=== PATIENT | female | born 1960 | race African-American/Black ===

== ENCOUNTER → 2016-06-05 | Outpatient (CLI) | payer BC ==
[~2016-06-05] MED LIST: ACYC400T PO; ASPI81TA2 PO; ATEN1TAB3 PO; CHOL200014 PO; CHOL4PAC5 PO; CLON0.1T13 PO; CYAN100085 PO; GABA-338 PO; LACT1CAP73 PO; LEVO100T12 PO; LIOT5TAB4 PO; MILN50TA PO; OMEP20CA10 PO; [UNRECOGNIZED DRUG - CODE] PO
[2016-06-06 01:18] LABS: FREE T4 (FREE THYROXINE)-BATCH 0.95 NG/DL (0.78-2.19)
[2016-06-06 02:19] LABS: T3 FREE - BATCH 5.34 PG/ML (2.77-5.27)
== END ==
LOC: LAB 15:58
PROVIDERS: ATTEND Internal Medicine Endocrinology, Diabetes & Metabolism
DX: E03.9 Hypothyroidism, unspecified (principal)
CPT/HCPCS: 36415; 84439; 84443; 84481

== ENCOUNTER → 2016-07-05 | Outpatient (CLI) | payer BC ==
[2016-07-06 02:27] LABS: T3 FREE - BATCH 1.96 PG/ML (2.77-5.27)
[2016-07-06 02:36] LABS: FREE T4 (FREE THYROXINE)-BATCH 0.75 NG/DL (0.78-2.19)
== END ==
LOC: LAB 10:48
PROVIDERS: ATTEND Internal Medicine
DX: E03.9 Hypothyroidism, unspecified (principal)
CPT/HCPCS: 36415; 84439; 84443; 84481